=== PATIENT | male | born 1995 | race Caucasian/White ===

== ENCOUNTER 2022-12-07 16:10 | Emergency (ER) | payer MEDICAID ==
[~2022-12-07] VITALS: Ht 182.9 cm; Wt 100.0 kg
[2022-12-07 16:27] VITALS: BP 140/72; RESP 18; TEMP 98.3; O2SAT 100
[2022-12-07 16:35] VITALS: PULSE 89
[2022-12-07] MEDS ORDERED: NEOM1PAC6 TP (17:34)
[2022-12-07] MEDS ORDERED: TETANUS, DIPHTHERIA, PERTUSSIS VAC/PF 0.5ML (>10YR OLD) IM ONE (17:45)
== END 2022-12-07 18:12 | disposition home or self-care (01) ==
LOC: ER 16:10
DX: S61.412A Laceration without foreign body of left hand, initial encounter (principal); W26.0XXA Contact with knife, initial encounter; Y93.89 Activity, other specified; Y92.89 Other specified places as the place of occurrence of the external cause; Y99.8 Other external cause status
CPT/HCPCS: 73120; 90715; 12002; 90471; 99283; Z7610 ×2